=== PATIENT | female | born 1965 | race Caucasian/White ===

== ENCOUNTER 2017-04-14 19:00 | Emergency (ER) | payer OTHER ==
[~2017-04-14] VITALS: Ht 165.1 cm; Wt 56.7 kg
[2017-04-14] MEDS ORDERED: AUGMENTIN 875-875 MG PO (19:25)
== END 2017-04-14 23:40 | disposition home or self-care (01) ==
LOC: ED 19:00
DX: J02.9 Acute pharyngitis, unspecified (principal)

== ENCOUNTER 2019-10-03 16:44 | Emergency (ER) | payer OTHER ==
[~2019-10-03] VITALS: Wt 59.0 kg
[~2019-10-03 16:44] MED LIST: AUGMENTIN 875-875 MG PO
== END 2019-10-03 17:35 | disposition home or self-care (01) ==
LOC: ED 16:44
DX: J02.9 Acute pharyngitis, unspecified (principal); R51 Headache; G90.523 Complex regional pain syndrome I of lower limb, bilateral; Z99.3 Dependence on wheelchair; Z79.2 Long term (current) use of antibiotics